=== PATIENT | male | born 1995 | race Caucasian/White ===

== ENCOUNTER 2017-07-08 10:45 | Emergency (ER) | payer BC ==
[2017-07-08 11:18] VITALS: BP 147/84
--- NOTE | 2017-07-08 11:19 | UC ---
Throat Pain/Nasal Helio HPI - HPI Summary HPI Summary: FIVE DAYS OF SINUS CONGESTION, FEVER, COUGH, SORE THROAT. IS ILL TOO. NO ABDOMAINL PAIN. NO RASHES. - History of Current Complaint Chief Complaint: UCRespiratory Stated Complaint: RESPIRATORY COMPLAINT COUGH Time Seen by Provider: 07/08/17 10:52 Hx Obtained From: Patient Onset/Duration: Gradual Onset, Lasting Days, Worse Since - DAILY Severity: Moderate Cough: Nonproductive Associated Signs & Symptoms: Positive: Hoarseness, Sinus Discomfort, Nasal Discharge, Fever - Epiglottits Risk Factors Epiglottis Risk Factors: Negative - Allergies/Home Medications Allergies/Adverse Reactions: Allergies Allergy/AdvReac Type Severity Reaction Status Date / Time No Known Allergies Allergy Verified 07/08/17 10:54 Home Medications: Home Medications Pseudoephedrine TAB* [Sudafed TAB*] 30 mg PO Q6H PRN 07/08/17 [History Confirmed 07/08/17] PMH/Surg Hx/FS Hx/Imm Hx Previously Healthy: Yes - Surgical History Surgical History: None - Family History Known Family History: Negative: Respiratory Disease - Social History Occupation: Employed Full-time Lives: With Family Alcohol Use: Occasionally Substance Use Type: Excessive Caffeine Smoking Status (MU): Never Smoked Tobacco - Immunization History Most Recent Influenza Vaccination: NOT IN 2017 Review of Systems Constitutional: Negative Skin: Negative Eyes: Negative ENT: Sore Throat, Nasal Discharge, Sinus Congestion, Sinus Pain/Tenderness Respiratory: Cough Cardiovascular: Negative Gastrointestinal: Negative Genitourinary: Negative Motor: Negative Neurovascular: Negative Musculoskeletal: Negative Neurological: Negative Psychological: Negative Is Patient Immunocompromised?: No All Other Systems Reviewed And Are Negative: Yes Physical Exam Triage Information Reviewed: Yes Appearance: No Pain Distress, Well-Nourished Vital Signs: Initial Vital Signs Temp 100.5 F 07/08/17 10:55 Pulse 114 07/08/17 10:55 Resp 20 07/08/17 10:55 BP 147/84 07/08/17 10:55 Pulse Ox 97 07/08/17 10:55 Vital Signs Reviewed: Yes Eye Exam: Normal ENT: Positive: Hearing grossly normal, Nasal congestion, TM bulging, TM dull Dental Exam: Normal Neck exam: Normal Respiratory Exam: Normal Respiratory: Positive: Chest non-tender, Lungs clear, Normal breath sounds Cardiovascular Exam: Normal Cardiovascular: Positive: RRR, No Murmur, Pulses Normal Abdominal Exam: Normal Musculoskeletal Exam: Normal Musculoskeletal: Positive: Strength Intact, ROM Intact Neurological Exam: Normal Psychological Exam: Normal Skin Exam: Normal Throat Pain/Nasal Course/Dx - Differential Dx/Diagnosis Differential Diagnosis/HQI/PQRI: Mononucleosis, Otitis Media, Sinusitis, Tonsillitis, URI Provider Diagnoses: SINUSITIS Discharge - Discharge Plan Condition: Stable Disposition: HOME Prescriptions: Amoxicillin/Clavulanate TAB* [Augmentin TAB 875*] 875 mg PO BID #20 tab Patient Education Materials: Sinusitis (ED) Forms: *Work Release Referrals: [facility] [Outside] No Primary Care Phys,NOPCP [Primary Care Provider] - Additional Instructions: PRIMARY CARE: There are four major types of clinical preventive care: immunizations, screening , behavioral counseling (sometimes referred to as lifestyle changes), and chemoprevention. All four apply throughout the life span. It is important to establish and to have access to a Primary Care Physician, not only for follow- up regarding acute and chronic problems, but also for preventative care.
== END 2017-07-08 11:16 | disposition home or self-care (01) ==
LOC: UCCORT 10:45
DX: J32.9 Chronic sinusitis, unspecified (principal)
CPT/HCPCS: 99212; G0463

== ENCOUNTER 2017-11-11 17:47 | Emergency (ER) | payer BC ==
[2017-11-11 18:54] VITALS: BP 146/72
--- NOTE | 2017-11-11 19:44 | UC ---
Upper Extremity HPI - HPI Summary HPI Summary: 22 YEAR OLD MALE WITH thumb pain after a fall at work earlier today. thumb hyper extended back and has been painful since then. he was able to conutnue to work. pain with movement . can move the thumb. no wrist pain. no elbow pain. no previous injury - History of Current Complaint Chief Complaint: UCUpperExtremity Stated Complaint: RT THUMB INJ Time Seen by Provider: 11/11/17 19:02 Hx Obtained From: Patient - Allergies/Home Medications Allergies/Adverse Reactions: Allergies Allergy/AdvReac Type Severity Reaction Status Date / Time No Known Allergies Allergy Verified 07/08/17 10:54 PMH/Surg Hx/FS Hx/Imm Hx - Surgical History Surgical History: Yes Surgery Procedure, Year, and Place: HERNIA REPAIR AN . - Family History Known Family History: Negative: Respiratory Disease - Social History Alcohol Use: Occasionally Substance Use Type: Excessive Caffeine Smoking Status (MU): Never Smoked Tobacco Type: Smokeless Tobacco Amount Used/How Often: 1 CAN/WK Length of Time of Smoking/Using Tobacco: 2 YRS - Immunization History Most Recent Influenza Vaccination: NOT IN 2017 Review of Systems Musculoskeletal: Arthralgia, Decreased ROM Is Patient Immunocompromised?: No All Other Systems Reviewed And Are Negative: Yes Physical Exam Triage Information Reviewed: Yes Appearance: Well-Appearing, No Pain Distress, Well-Nourished Vital Signs: Initial Vital Signs Temp 99 F 11/11/17 18:46 Pulse 78 11/11/17 18:46 Resp 18 11/11/17 18:46 BP 146/72 11/11/17 18:46 Pulse Ox 100 11/11/17 18:46 Vital Signs Reviewed: Yes Neck exam: Normal Neck: Positive: 1 Respiratory Exam: Normal Cardiovascular Exam: Normal Musculoskeletal Exam: Normal Musculoskeletal: Positive: Strength Limited @, ROM Limited @ - mild swelling base of thumb. no pain in anatomic snuff box. can refill <3 sec. peripheral pulses intact and brisk. no wrist pain . no elbow pain. Neurological Exam: Normal Psychological Exam: Normal Skin Exam: Normal Diagnostics - Laboratory Diagnostic Studies Completed/Ordered: IMPRESSION: No fracture of the right thumb is noted. Upper Extremity Course/Dx - Differential Dx/Diagnosis Differential Diagnosis/HQI/PQRI: Fracture (Closed), Strain, Sprain Provider Diagnoses: Thumb sprain right sided Discharge - Discharge Plan Condition: Good Disposition: HOME Referrals: Mani Miguel MD [Medical Doctor] - 5 Days (Ortho referral if needed ) No Primary Care Phys,NOPCP [Primary Care Provider] -
--- NOTE | 2017-11-11 19:48 | RAD ---
Indication: Right thumb injury. 3 views of the right thumb demonstrates no definite fracture or dislocation. No other bone or joint abnormality is identified. IMPRESSION: No fracture of the right thumb is noted.
== END 2017-11-11 20:05 | disposition home or self-care (01) ==
LOC: UCCORT 17:47
DX: S63.601A Unspecified sprain of right thumb, initial encounter (principal); W19.XXXA Unspecified fall, initial encounter; Y93.9 Activity, unspecified; Y92.89 Other specified places as the place of occurrence of the external cause; Y99.0 Civilian activity done for income or pay; F17.220 Nicotine dependence, chewing tobacco, uncomplicated
CPT/HCPCS: 99213; G0463

== ENCOUNTER 2017-12-20 18:37 | Emergency (ER) | payer BC ==
--- NOTE | 2017-12-20 20:16 | ED ---
Respiratory - HPI Summary HPI Summary: 22 yr old male with onset of chills, fatigue, myalgias, headache late this afternoon. No runny nose, sore throat or cough at this point. No other complaints. - History of Current Complaint Chief Complaint: UCRespiratory Stated Complaint: FLU SYMPTOMS Time Seen by Provider: 12/20/17 20:00 - Allergy/Home Medications Allergies/Adverse Reactions: Allergies Allergy/AdvReac Type Severity Reaction Status Date / Time No Known Allergies Allergy Verified 12/20/17 20:13 PMH/Surg Hx/FS Hx/Imm Hx - Surgical History Surgery Procedure, Year, and Place: HERNIA REPAIR AN INFANT. Infectious Disease History: Denies: Traveled Outside the [place] in Last 30 Days - N - Family History Known Family History: Negative: Respiratory Disease - Social History Alcohol Use: Occasionally Substance Use Type: Reports: Excessive Caffeine Smoking Status (MU): Never Smoked Tobacco Type: Smokeless Tobacco Amount Used/How Often: 1 CAN/WK Length of Time of Smoking/Using Tobacco: 2 YRS Review of Systems Constitutional: Negative Positive: Chills, Fatigue Positive: Myalgia All Other Systems Reviewed And Are Negative: Yes Physical Exam Triage Information Reviewed: Yes Vital Signs Reviewed: Yes Appearance: Positive: Well-Appearing, No Pain Distress Skin: Positive: Warm, Skin Color Reflects Adequate Perfusion Head/Face: Positive: Normal Head/Face Inspection Eyes: Positive: EOMI ENT: Positive: Normal ENT inspection, Pharynx normal, TMs normal Neck: Positive: Nontender Respiratory/Lung Sounds: Positive: Clear to Auscultation, Breath Sounds Present Cardiovascular: Positive: Normal, RRR. Negative: Murmur Abdomen Description: Positive: Nontender Musculoskeletal: Positive: Strength/ROM Intact Neurological: Positive: Sensory/Motor Intact, Alert, Oriented to Person Place, Time, CN Intact II-III Psychiatric: Positive: Normal - Seymour Coma Scale Best Eye Response: 4 - Spontaneous Best Motor Response: 6 - Obeys Commands Best Verbal Response: 5 - Oriented Coma Scale Total: 15 Disposition - Course Course Of Treatment: 22 yr old with neg flu swab. He is very early in course of what sounds like flu like symptoms. Will Rx with tamiflu. - Diagnoses Provider Diagnoses: Influenza Discharge - Discharge Plan Condition: Good Disposition: HOME Prescriptions: Oseltamivir CAP* [Tamiflu CAP*] 75 mg PO BID #10 cap Patient Education Materials: Influenza (ED) Forms: *Work Release Referrals: No Primary Care Phys,NOPCP [Primary Care Provider] - [facility] [place] [facility] [Outside]
[2017-12-20 20:20] VITALS: BP 111/66
== END 2017-12-20 20:57 | disposition home or self-care (01) ==
LOC: UCCORT 18:37
DX: J11.1 Influenza due to unidentified influenza virus with other respiratory manifestations (principal); F17.220 Nicotine dependence, chewing tobacco, uncomplicated
CPT/HCPCS: 87502; 99212; G0463